=== PATIENT | female | born 1950 | race Caucasian/White ===

== ENCOUNTER 2017-10-22 02:38 | Inpatient (IN) | payer MEDICARE, BC ==
[2017-10-22] MEDS ORDERED: traMADol HCl 50 MG TAB PO PRN (04:10)
[2017-10-22] MEDS ORDERED: Aggrastat 12.5 MG/250 ML 250 ML IVPB SCH (04:15)
[2017-10-22] MEDS ORDERED: DOPamine 400 MG/D5W 250 ML 250 ML IVPB SCH (04:15)
[2017-10-22 04:31] VITALS: BMI 31.1
--- NOTE | 2017-10-22 05:16 | HP ---
DATE OF SERVICE: 10/22/2017 CHIEF COMPLAINT: Chest pain. HISTORY OF PRESENT ILLNESS: Ms. Rush is a very pleasant 67-year-old white female who comes to the hospital as a transfer from the [facility] in [facility] for an acute [place]. She presented there for actually jaw pain that started at 11:00 p.m. yesterday. It would not go away, so she decided to come in for evaluation to the [place] [facility] at around 1:30 to 2:00 a.m. EKG was done that showed an inf erior ST elevation [place] with sinus bradycardia and reciprocal changes, so the STEMI pager was activated and the patient was transferred over to [place] for higher level of care. Here, she was met [facility] and she was immediately transferred to the clinical lab clerk for intervention. A diagnostic right coron jana artery was occluded. A Whisper wire was then passed and ballooned open. She had a very intense reperfusion reaction. She became very bradycardic and hypotensive. To the point where she passed ou t and we had to start chest compressions briefly. She got 1 dose of epinephrine 1 mg and she became tachycardic, hypertensive, woke up immediately. This lasted just for about 2-3 minutes and then even tually slowly she got back down. Dopamine drip was going at that time as well. She was started on A ggrastat due to the large amount of thrombus even after stenting. She is much more stable, there was no need to place a temporary pacemaker, as she remained stable after this. Her jaw pain was complet broderick gone after she had her artery open. 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 This will be treated medically for now. PAST MEDICAL HISTORY: None. PAST SURGICAL HISTORY: None. OUTPATIENT MEDICATIONS: Ibuprofen which she took earlier today. Otherwise, none. ALLERGIES: No known drug allergies. SOCIAL HISTORY: Denies any alcohol, tobacco, or drugs. REVIEW OF SYSTEMS: A 12-point review of systems was done and is all negative unless stated in the hi story of present illness. PHYSICAL EXAMINATION: VITAL SIGNS: Currently, blood pressure 126/82, respiratory rate 20, satting 98% on 2 liters nasal ca nnula, heart rate at 72. GENERAL: Awake, alert, oriented x3, in no distress. HEENT: Normocephalic, atraumatic. NECK: Supple. LUNGS: Clear. CARDIOVASCULAR: S1, S2. No S3, S4, no murmurs. ABDOMEN: Soft, positive bowel sounds. EXTREMITIES: No edema. SKIN: Warm and dry. LABORATORY WORK: Laboratory work is pending at this time. EKG shows inferior ST elevations [place] with reciprocal changes to bradycardia. ASSESSMENT: 1. Acute inferior ST elevation myocardial infarction. 2. Cardiogenic shock. 3. Sinus bradycardia and high-degree AV block from reperfusion. Resolved now. PLAN: 1. Continue Aggrastat for a total of 12 hours due to the high clot burden. She also has distal embo lization of thrombus into the RPDA, which was improving; however, this was still standing towards the end of the last picture. 2. Continue Brilinta and aspirin 81 for dual antiplatelet therapy. 3. We will start high-dose statin. 4. No beta blanca or KODAK inhibitor at this time until blood pressure gets more stable. 5. Continue dopamine drip. She is stable with this at that time. 6. FULL CODE. 7. PPI for GI prophylaxis. 8. No need for deep venous thrombosis prophylaxis, as she is having triple antiplatelet therapy for the time being. 9. DISPOSITION: Depending on clinical evolution will most likely 3-4 days in the hospital and then discharged home. 10. Echocardiogram pending.
[2017-10-22 05:48] LABS: #Lymphocytes 0.5 thou/uL (1.20-3.40); #Monocytes 0.3 thou/uL (0.11-0.59); #Neutrophils 11.6 thou/uL (1.40-6.50); %Eosinophils 0.1 % (0.0-10.0); %Monocytes 2.3 % (0.0-10.0); %Neutrophils 93.5 % (42.0-75.0); Hemoglobin 11.2 g/dL (12.0-16.0); Mean Corpuscular HGB CONC 34.2 g/dL (32.0-36.0); Mean Corpuscular Hemoglobin 30.1 pg (27.0-31.0); Mean Corpuscular Volume 88.1 fL (78.0-98.0); Mean Platelet Volume 7.2 fL (7.4-10.4); Platelet Count 193 thou/uL (130-400); RBC Distribution Width 12.4 % (11.5-14.5); Red Blood Cell (RBC) Count 3.73 mill/uL (4.20-5.40); White Blood Cell (WBC) Count 12.4 thou/uL (4.8-10.8)
[2017-10-22 06:29] LABS: CKMB 211.2 ng/mL (0-6.6); Troponin I 34.322 ng/mL (< 0.028)
[2017-10-22 06:46] LABS: Free T4 (Free Thyroxine) 1.41 ng/dL (0.70-1.48); Thyroid Stimulating Hormone 1.2045 uIU/mL (0.35-4.94)
[2017-10-22] MEDS: Acetaminophen/Codeine 30-300mg Tablet PO PRN ×2 (06:50→20:01)
[2017-10-22 06:55] LABS: Cardiac Risk 4.9 (Less than 4.5)
[2017-10-22] MEDS: TICAGRELOR 90 MG TABLET PO SCH ×2 (09:00→20:01)
[2017-10-22] MEDS ORDERED: Prevnar 13-Val Conj/PF 0.5 ML SYRINGE IM ONE (09:00)
[2017-10-22 10:24] LABS: #Lymphocytes 0.6 thou/uL (1.20-3.40); #Monocytes 0.6 thou/uL (0.11-0.59); #Neutrophils 10.9 thou/uL (1.40-6.50); %Basophils 0.1 % (0.0-1.0); %Eosinophils 0.1 % (0.0-10.0); %Lymphocytes 4.9 % (21.0-51.0); %Monocytes 4.7 % (0.0-10.0); %Neutrophils 90.2 % (42.0-75.0); Hemoglobin 11.2 g/dL (12.0-16.0); Mean Corpuscular HGB CONC 34.8 g/dL (32.0-36.0); Mean Corpuscular Hemoglobin 30.8 pg (27.0-31.0); Mean Corpuscular Volume 88.5 fL (78.0-98.0); Mean Platelet Volume 7.5 fL (7.4-10.4); Platelet Count 207 thou/uL (130-400); RBC Distribution Width 12.5 % (11.5-14.5); Red Blood Cell (RBC) Count 3.63 mill/uL (4.20-5.40)
[2017-10-22 11:05] LABS: CKMB 341.3 ng/mL (0-6.6); Troponin I 70.431 ng/mL (< 0.028)
[2017-10-22 11:18] LABS: Anion Gap 18 mmol/L (10-20); BUN (Urea Nitrogen) 20 mg/dL (9.8-20.1); Calc. Creatinine Clearance 79 mL/min (70-130); Calcium 8.7 mg/dL (7.8-10.44); Carbon Dioxide 15 mmol/L (23-31); Chloride 108 mmol/L (98-107); Estimated GFR-MDRD 53; Glucose 149 mg/dL (80-115); Potassium 4.5 mmol/L (3.5-5.1); Sodium 136 mmol/L (136-145)
[2017-10-22] MEDS ORDERED: Iopamidol 370 76% 50 ML VIAL FS ONE (14:42)
[2017-10-22] MEDS ORDERED: Iopamidol 370 76% 100 ML VIAL ONE (14:42)
[2017-10-22 16:41] LABS: #Lymphocytes 0.7 thou/uL (1.20-3.40); #Monocytes 0.7 thou/uL (0.11-0.59); #Neutrophils 8.5 thou/uL (1.40-6.50); %Basophils 0.1 % (0.0-1.0); %Eosinophils 0.2 % (0.0-10.0); %Lymphocytes 7.4 % (21.0-51.0); %Monocytes 7.1 % (0.0-10.0); %Neutrophils 85.2 % (42.0-75.0); Hemoglobin 10.7 g/dL (12.0-16.0); Mean Corpuscular HGB CONC 35.2 g/dL (32.0-36.0); Mean Corpuscular Volume 88.2 fL (78.0-98.0); Mean Platelet Volume 7.2 fL (7.4-10.4); Platelet Count 200 thou/uL (130-400); RBC Distribution Width 12.5 % (11.5-14.5); Red Blood Cell (RBC) Count 3.46 mill/uL (4.20-5.40)
[2017-10-22] MEDS: Atorvastatin Calcium 40 MG TAB PO SCH (20:01)
[2017-10-23 04:28] LABS: #Lymphocytes 0.8 thou/uL (1.20-3.40); #Monocytes 0.5 thou/uL (0.11-0.59); #Neutrophils 6.2 thou/uL (1.40-6.50); %Eosinophils 0.4 % (0.0-10.0); %Lymphocytes 10.7 % (21.0-51.0); %Monocytes 7.2 % (0.0-10.0); %Neutrophils 81.6 % (42.0-75.0); Hemoglobin 10.2 g/dL (12.0-16.0); Mean Corpuscular HGB CONC 34.9 g/dL (32.0-36.0); Mean Corpuscular Hemoglobin 31.3 pg (27.0-31.0); Mean Corpuscular Volume 89.6 fL (78.0-98.0); Mean Platelet Volume 7.5 fL (7.4-10.4); Platelet Count 181 thou/uL (130-400); RBC Distribution Width 12.5 % (11.5-14.5); Red Blood Cell (RBC) Count 3.27 mill/uL (4.20-5.40); White Blood Cell (WBC) Count 7.5 thou/uL (4.8-10.8)
[2017-10-23 04:36] LABS: ALT (SGPT) 136 U/L (8-55); AST (SGOT) 185 U/L (5-34); Albumin 3.4 g/dL (3.4-4.8); Alkaline Phosphatase 62 U/L (40-150); Anion Gap 12 mmol/L (10-20); BUN (Urea Nitrogen) 23 mg/dL (9.8-20.1); Bilirubin, Total 0.9 mg/dL (0.2-1.2); Calc. Creatinine Clearance 81 mL/min (70-130); Carbon Dioxide 22 mmol/L (23-31); Chloride 108 mmol/L (98-107); Estimated GFR-MDRD 54; Globulin 2.4 g/dL (2.4-3.5); Glucose 146 mg/dL (80-115); Potassium 4.2 mmol/L (3.5-5.1); Protein, Total 5.8 g/dL (6.0-8.3); Sodium 138 mmol/L (136-145)
[2017-10-23] MEDS: Acetaminophen/Codeine 30-300mg Tablet PO PRN ×2 (09:00→20:47)
[2017-10-23] MEDS: TICAGRELOR 90 MG TABLET PO SCH ×2 (09:00→20:48)
[2017-10-23 10:07] LABS: #Lymphocytes 0.8 thou/uL (1.20-3.40); #Monocytes 0.6 thou/uL (0.11-0.59); #Neutrophils 7.6 thou/uL (1.40-6.50); %Basophils 0.2 % (0.0-1.0); %Eosinophils 0.4 % (0.0-10.0); %Lymphocytes 8.3 % (21.0-51.0); %Monocytes 6.9 % (0.0-10.0); %Neutrophils 84.1 % (42.0-75.0); Hemoglobin 10.3 g/dL (12.0-16.0); Mean Corpuscular HGB CONC 34.9 g/dL (32.0-36.0); Mean Corpuscular Hemoglobin 31.1 pg (27.0-31.0); Mean Corpuscular Volume 88.9 fL (78.0-98.0); Mean Platelet Volume 7.1 fL (7.4-10.4); Platelet Count 176 thou/uL (130-400); RBC Distribution Width 12.6 % (11.5-14.5); Red Blood Cell (RBC) Count 3.31 mill/uL (4.20-5.40); White Blood Cell (WBC) Count 9.1 thou/uL (4.8-10.8)
[2017-10-23 16:21] LABS: #Eosinphils 0.1 thou/uL (0.0-0.7); #Lymphocytes 1.1 thou/uL (1.20-3.40); #Monocytes 0.6 thou/uL (0.11-0.59); #Neutrophils 6.2 thou/uL (1.40-6.50); %Basophils 0.1 % (0.0-1.0); %Eosinophils 0.8 % (0.0-10.0); %Lymphocytes 13.4 % (21.0-51.0); %Monocytes 7.2 % (0.0-10.0); %Neutrophils 78.5 % (42.0-75.0); Hemoglobin 10.5 g/dL (12.0-16.0); Mean Corpuscular HGB CONC 34.2 g/dL (32.0-36.0); Mean Corpuscular Hemoglobin 30.8 pg (27.0-31.0); Mean Corpuscular Volume 90.2 fL (78.0-98.0); Mean Platelet Volume 7.3 fL (7.4-10.4); Platelet Count 177 thou/uL (130-400); RBC Distribution Width 12.8 % (11.5-14.5); Red Blood Cell (RBC) Count 3.41 mill/uL (4.20-5.40); White Blood Cell (WBC) Count 7.9 thou/uL (4.8-10.8)
--- NOTE | 2017-10-23 17:55 | PDOC.CTH ---
Cardiology Progress Note - Subjective She is doing well. No chest pain, tightness ,pressure, SOB. She has been walking with CR without issues. Her right groin is without issues, no pain. - Objective Vital Signs Temp Pulse Pulse Pulse Resp BP BP 10/23/17 12:00 98.4 F 10/23/17 09:58 82 75 130/57 L 140/66 10/23/17 08:00 98.2 F 10/23/17 07:45 98.2 F 74 18 Pulse Ox 10/23/17 12:00 10/23/17 09:58 10/23/17 08:00 10/23/17 07:45 97 Weight 216 lb 11.43 oz 10/22/17 10/23/17 10/24/17 06:59 06:59 06:59 Intake Total 60 986 990 Output Total 100 1125 400 Balance -40 -139 590 - Physical Examination General/Neuro: alert & oriented x3, NAD Neck: no JVD present Lungs: CTA, unlabored respirations Heart: RRR Abdomen: NT/ND Extremities: other: (no edema) - Telemetry Telemetry Rhythm: NSR - Labs Result Diagrams: 10/23/17 16:14 10/23/17 03:30 Troponin/CKMB CK-MB (CK-2) 341.3 ng/mL (0-6.6) H* 10/22/17 10:06 Troponin I 70.431 ng/mL (< 0.028) H* 10/22/17 10:06 - Assessment/Plan 1. Acute inferior STEMI. 2. HTN 3. Bradycardia, resolved 4. Cardiogenic shock , resolved. 5. Hyperglycemia. PLAN: - Normal LV function. - Will start low dose BB and ACEI. - Continue Brilinta and aspirin 81. - Will check HgA1c - Transfer to telemetry, - Likely home tomorrow. 30 minutes critical care.
[2017-10-23] MEDS: Atorvastatin Calcium 40 MG TAB PO SCH (20:47)
[2017-10-24 05:00] LABS: #Eosinphils 0.2 thou/uL (0.0-0.7); #Monocytes 0.6 thou/uL (0.11-0.59); #Neutrophils 5.2 thou/uL (1.40-6.50); %Basophils 0.1 % (0.0-1.0); %Eosinophils 2.5 % (0.0-10.0); %Lymphocytes 14.6 % (21.0-51.0); %Monocytes 8.5 % (0.0-10.0); %Neutrophils 74.4 % (42.0-75.0); Hemoglobin 9.6 g/dL (12.0-16.0); Mean Corpuscular Volume 88.8 fL (78.0-98.0); Mean Platelet Volume 7.3 fL (7.4-10.4); Platelet Count 162 thou/uL (130-400); RBC Distribution Width 12.5 % (11.5-14.5)
[2017-10-24 05:19] LABS: Anion Gap 10 mmol/L (10-20); BUN (Urea Nitrogen) 23 mg/dL (9.8-20.1); Calc. Creatinine Clearance 81 mL/min (70-130); Calcium 8.7 mg/dL (7.8-10.44); Carbon Dioxide 24 mmol/L (23-31); Chloride 107 mmol/L (98-107); Estimated GFR-MDRD 54; Glucose 138 mg/dL (80-115); Potassium 4.2 mmol/L (3.5-5.1); Sodium 137 mmol/L (136-145)
[2017-10-24 08:04] VITALS: TEMP 99
[2017-10-24] MEDS: TICAGRELOR 90 MG TABLET PO SCH (08:40)
[2017-10-24 08:43] VITALS: BP 172/54
[2017-10-24] MEDS ORDERED: Lisinopril 2.5 MG TAB PO SCH (09:00)
[2017-10-24] MEDS ORDERED: Lisinopril 5 MG TAB PO SCH (09:00)
[2017-10-24] MEDS ORDERED: Clopidogrel Bisulfate 75 MG TAB PO SCH (09:00)
--- NOTE | 2017-10-24 09:24 | DIS ---
DATE OF ADMISSION: 10/22/2017 DATE OF DISCHARGE: 10/24/2017 DISCHARGING PHYSICIAN: Dr. Sebas Cárdenas PRIMARY DIAGNOSIS: Inferior ST elevation myocardial infarction. SUMMARY: Ms. Rush is a pleasant 67-year-old white female who came to the hospital for chest pain down in [place], [facility] for inferior ST elevations. She was immediately taken to the bundle tier and labeler a nd was found to have an occluded RCA which was stented with a drug-coated stent. She did have a lot of bradycardia after opening up the artery and hypotension. She had to be placed on dopamine and praveen ntually had to be given a dose of epinephrine as she lost her pulse and lost consciousness briefly. She came back rather quickly. Her blood pressure shot up and she went into VT and she had to shock o ut of it once. Otherwise, she did very well. Postoperatively, she was placed 2B 3A for 12 hours wit h good results. Her right groin is without issues. She had up titration of her metoprolol and lisin opril as her blood pressure was a little bit on the high side. She is stable today and has been walk ing around without any issues with no anginal symptoms. We will plan on discharging her home on curr ent regimen and adding a sublingual nitro p.r.n. FOLLOWUP APPOINTMENTS: 1. PCP in 1-2 weeks. 2. With myself, Dr. Sebas Cárdenas in 1 month.
== END 2017-10-24 11:55 | disposition home or self-care (01) | DRG 246 ==
LOC: ERS 02:38 → SDC/OP 02:45 → CCU 04:08
PROVIDERS: ADMIT Internal Medicine Cardiovascular Disease; ATTEND Internal Medicine Cardiovascular Disease
PROC: 4A023N7 Measurement of Cardiac Sampling and Pressure, Left Heart, Percutaneous Approach (ICD-10-PCS; principal; 2017-10-22)
PROC: 027034Z Dilation of Coronary Artery, One Artery with Drug-eluting Intraluminal Device, Percutaneous Approach (ICD-10-PCS; 2017-10-22)
PROC: 02C03ZZ Extirpation of Matter from Coronary Artery, One Artery, Percutaneous Approach (ICD-10-PCS; 2017-10-22)
PROC: B2111ZZ Fluoroscopy of Multiple Coronary Arteries using Low Osmolar Contrast (ICD-10-PCS; 2017-10-22)
PROC: B2151ZZ Fluoroscopy of Left Heart using Low Osmolar Contrast (ICD-10-PCS; 2017-10-22)
PROC: 3E07317 Introduction of Other Thrombolytic into Coronary Artery, Percutaneous Approach (ICD-10-PCS; 2017-10-22)
PROC: 3E0234Z Introduction of Serum, Toxoid and Vaccine into Muscle, Percutaneous Approach (ICD-10-PCS; 2017-10-24)
DX: I21.19 ST elevation (STEMI) myocardial infarction involving other coronary artery of inferior wall (principal); R57.0 Cardiogenic shock; I25.10 Atherosclerotic heart disease of native coronary artery without angina pectoris; Z79.82 Long term (current) use of aspirin; Z23 Encounter for immunization
CPT/HCPCS: 36415; 80048; 80053; 80061; 82553; 83036; 83880; 84439; 84443; 84484; 85025; 85347; 90471; 90670; 92941; 92977; 93005; 93010; 93306; 93458; 93798; C1769; C1874; C1887; C9606; G0009